=== PATIENT | male | born 1975 | race Caucasian/White ===

== ENCOUNTER → 2020-11-15 | Outpatient (CLI) | payer BC, OTHER | END | disposition home or self-care (01) | LOC: EDSTATUS 13:15 → RAD 13:36 | PROVIDERS: ATTEND Physician Assistant Surgical | DX: S53.104A Unspecified dislocation of right ulnohumeral joint, initial encounter (principal); M66.821 Spontaneous rupture of other tendons, right upper arm; X58.XXXA Exposure to other specified factors, initial encounter; Y93.89 Activity, other specified; Y92.89 Other specified places as the place of occurrence of the external cause; Y99.8 Other external cause status ==